=== PATIENT | male | born 1995 | race Hispanic/Latino ===

== ENCOUNTER 2020-09-23 08:39 | Emergency (ER) | payer OTHER, SELFPAY ==
[2020-09-23] MEDS ORDERED: Ketorolac Tromethamine 30 MG/ML VIAL ONE (10:16)
== END 2020-09-23 14:14 | disposition home or self-care (01) ==
LOC: ERS 08:39
DX: S22.009A Unspecified fracture of unspecified thoracic vertebra, initial encounter for closed fracture (principal); X50.0XXA Overexertion from strenuous movement or load, initial encounter
CPT/HCPCS: 72072; 72110; 96372; J1885